=== PATIENT | male | born 2000 | race African-American/Black ===

== ENCOUNTER 2020-01-29 15:17 | Emergency (ER) | payer OTHER, MEDICAID ==
[~2020-01-29] VITALS: Ht 175.3 cm; Wt 66.0 kg
[2020-01-29 15:20] VITALS: BP 138/90
[2020-01-29] MEDS ORDERED: IBUPROFEN 600MG TABLET PO ONE (15:45)
== END 2020-01-29 16:34 | disposition left against medical advice (07) ==
LOC: ER 15:17
DX: R68.89 Other general symptoms and signs (principal); V49.49XA Driver injured in collision with other motor vehicles in traffic accident, initial encounter; Y93.89 Activity, other specified; Y92.89 Other specified places as the place of occurrence of the external cause; Y99.8 Other external cause status
CPT/HCPCS: 71046; 99283

== ENCOUNTER 2020-05-29 16:16 | Inpatient (IN) | payer OTHER, MEDICAID ==
[2020-05-29] VITALS (8 sets, daily range): BP systolic 76–100; BP diastolic 46–72
[~2020-05-29] VITALS: Ht 177.8 cm; Wt 57.6 kg
[2020-05-29] MEDS ORDERED: SODIUM CHLORIDE 0.9% 1,000 ML IV ONE (16:35)
[2020-05-29] MEDS ORDERED: NALOXONE HCL 1 MG/ML 2ML VIAL IV ONE (16:45)
[2020-05-29] MEDS ORDERED: ONDANSETRON HCL 4MG/2ML INJ ONE (16:55)
[2020-05-29 16:57] LABS: BASOPHILS % 0.4 % (0.0-2.0); EOSINOPHILS % 0.2 % (0.0-5.0); HEMATOCRIT. 36.9 % (42.0-52.0); HEMOGLOBIN. 11.4 g/dL (14.0-18.0); LYMPHOCYTES % 10.7 % (20.0-50.0); MEAN CORPUSCULAR HEMOGLOBIN 27.1 pg (28.0-32.0); MEAN CORPUSCULAR VOLUME 88.1 fL (80.0-94.0); MEAN PLATELET VOLUME 10.2 fl (7.4-10.4); MONOCYTES % 2.7 % (2.0-8.0); PLATELET 202 x1000/uL (130-400); RED BLOOD CELL COUNT 4.19 mill/uL (4.7-6.1); RED CELL DISTRIBUTION WIDTH 16.7 % (11.6-14.6)
[2020-05-29 17:00] LABS: CHLORIDE 108 mEq/L (98-107)
[2020-05-29] MEDS ORDERED: ONDANSETRON HCL 4MG/2ML INJ IV ONE (17:00)
[2020-05-29 17:02] LABS: CLARITY URINE CLOUDY (CLEAR); COLOR URINE YELLOW (YELLOW); KETONES URINE NEGATIVE (NEGATIVE); LEUKOCYTE ESTERASE URINE NEGATIVE (NEGATIVE); NITRITE URINE NEGATIVE (NEGATIVE); OCCULT BLOOD URINE 2+ (NEGATIVE); PH URINE 5.5 (4.5-8.0); PROTEIN URINE 2+ (NEGATIVE); SPECIFIC GRAVITY URINE 1.018 (1.005-1.030)
[2020-05-29 17:03] LABS: PROTHROMBIN TIME 10.8 sec (9.6-11.0)
[2020-05-29 17:05] LABS: ETHANOL BLOOD < 10 mg/dL
[2020-05-29 17:09] LABS: BG BASE EXCESS -11.5 mmol/L (-2.0-2.0); BG CARBOXYHEMOGLOBIN 0.6 % (0.5-1.5); BG DEOXYHEMOGLOBIN 3.1 % (0.0-5.0); BG FRACTION INSPIRED OXYGEN 28; BG HCO3 ACT 16.7 mmol/L (22.0-26.0); BG METHEMOGLOBIN 0.2 % (0.0-1.5); BG OXYGEN SATURATION 96.9 % (92.0-98.5); BG OXYHEMOGLOBIN 96.1 % (94.0-97.0); BG PCO2 46.6 mmHg (35.0-45.0); BG PH 7.171 (7.350-7.450); BG PO2 101.5 mmHg (75.0-100.0); BG SAMPLE SITE RIGHT RADIAL; BG TOTAL HEMOGLOBIN 11.6 g/dL (12.0-18.0); BG VENT MODE NASAL CANNULA
[2020-05-29 17:10] LABS: CREATINE KINASE 480 IU/L (39-308)
[2020-05-29 17:14] LABS: *AMPHETAMINES SCREEN URINE NEGATIVE (NEGATIVE); *BARBITURATES SCREEN URINE NEGATIVE (NEGATIVE)
[2020-05-29 17:15] LABS: *BENZODIAZEPINES SCREEN URINE NEGATIVE (NEGATIVE); *COCAINE SCREEN URINE NEGATIVE (NEGATIVE); CANNABINOID URINE SCREEN PRESUMTIVE POSITIVE (NEGATIVE); METHADONE URINE SCREEN NEGATIVE (NEGATIVE); OPIATES URINE SCREEN NEGATIVE (NEGATIVE); PHENCYCLIDINE URINE SCREEN NEGATIVE (NEGATIVE)
[2020-05-29] MEDS ORDERED: ASPIRIN 325MG TABLET PO ONE (18:00)
[2020-05-29] MEDS ORDERED: DEXT 5% IV PRN (18:00)
[2020-05-29] MEDS ORDERED: NALOXONE IV PRN (18:00)
[2020-05-29] MEDS ORDERED: ASPIRIN 300MG SUPP PR ONE (18:00)
[2020-05-29] MEDS ORDERED: WATER IV PRN (18:00)
[2020-05-29] MEDS ORDERED: AZITHROMYCIN 500 MG in DEXT 5% WATER 250 ML IV STA (18:12)
[2020-05-29] MEDS ORDERED: CEFTRIAXONE 1 G PREMIX 50 ML IV ONE (18:15)
[2020-05-29] MEDS ORDERED: DIPHENHYDRAMINE 50MG/ML VIAL IV PRN (20:00)
[2020-05-29] MEDS ORDERED: CLONIDINE 0.1MG TABLET PO PRN (20:00)
[2020-05-29] MEDS ORDERED: ACETAMINOPHEN 325MG TABLET PO PRN ×2 (20:00)
[2020-05-29] MEDS ORDERED: ONDANSETRON HCL 4MG/2ML INJ IV PRN (20:00)
[2020-05-29] MEDS ORDERED: MAGNESIUM/ALUMINUM HYDROXIDE/SIMETHICONE 30ML UDC PO PRN (20:00)
[2020-05-29] MEDS ORDERED: DEXTROSE 50% WATER 50ML SYRINGE IV PRN (20:00)
[2020-05-29] MEDS ORDERED: INSULIN LISPRO 100 UNITS/ML SUBCUT SCH (21:00)
[2020-05-29] MEDS ORDERED: BLOOD SUGAR DIAGNOSTIC STRIP TEST SCH (21:00)
[2020-05-29] MEDS: ENOXAPARIN 40MG/0.4ML SYR SUBCUT SCH (22:40)
[2020-05-29] MEDS: SODIUM CHLORIDE 0.9% 1,000 ML IV SCH (22:41)
[2020-05-30] VITALS (67 sets, daily range): BP systolic 80–124; BP diastolic 41–92
[2020-05-30] MEDS ORDERED: LEVETIRACETAM 500 MG in SODIUM CHLORIDE 0.9% 100 ML IV SCH ×2
[2020-05-30] MEDS: LEVETIRACETAM 500MG PREMIX 100 ML IV SCH ×3 (00:43→22:17)
[2020-05-30 05:09] LABS: HEMOGLOBIN. 10.7 g/dL (14.0-18.0); MEAN CORPUSCULAR HEMOGLOBIN 26.5 pg (28.0-32.0); MEAN CORPUSCULAR VOLUME 86.9 fL (80.0-94.0); MEAN PLATELET VOLUME 10.7 fl (7.4-10.4); PLATELET 190 x1000/uL (130-400); RED BLOOD CELL COUNT 4.03 mill/uL (4.7-6.1); RED CELL DISTRIBUTION WIDTH 16.9 % (11.6-14.6)
[2020-05-30 05:12] LABS: CHLORIDE 103 mEq/L (98-107)
[2020-05-30 05:20] LABS: PHOSPHORUS 3.5 mg/dL (2.5-4.9)
[2020-05-30] MEDS ORDERED: SODIUM POLYSTYRENE SULFONATE 15 G/60 ML BOT PO NR (07:00)
[2020-05-30 08:09] LABS: PLATELET ESTIMATE NORMAL
[2020-05-30] MEDS: SODIUM CHLORIDE 0.9% 1,000 ML IV SCH ×3 (09:37→23:06)
[2020-05-30] MEDS ORDERED: KEPP500 PO (10:38)
[2020-05-30 12:58] LABS: CHLORIDE 102 mEq/L (98-107)
[2020-05-30] MEDS ORDERED: MAGNESIUM 2 G PREMIX 50 ML IV NR (13:00)
[2020-05-30] MEDS: CEFTRIAXONE 1,000 MG in DEXTROSE 5% WATER 50 ML IV SCH (18:29)
[2020-05-30] MEDS: ENOXAPARIN 40MG/0.4ML SYR SUBCUT SCH (22:18)
[2020-05-31] VITALS (7 sets, daily range): BP systolic 97–116; BP diastolic 54–80
[2020-05-31 06:27] LABS: BASOPHILS % 0.5 % (0.0-2.0); EOSINOPHILS % 0.3 % (0.0-5.0); HEMATOCRIT. 27.3 % (42.0-52.0); HEMOGLOBIN. 8.8 g/dL (14.0-18.0); LYMPHOCYTES % 22.2 % (20.0-50.0); MEAN CORPUSCULAR VOLUME 83.9 fL (80.0-94.0); PLATELET 154 x1000/uL (130-400); RED BLOOD CELL COUNT 3.25 mill/uL (4.7-6.1); RED CELL DISTRIBUTION WIDTH 17.1 % (11.6-14.6)
[2020-05-31 06:51] LABS: CHLORIDE 107 mEq/L (98-107)
[2020-05-31 06:59] LABS: PHOSPHORUS 2.3 mg/dL (2.5-4.9)
[2020-05-31] MEDS: LEVETIRACETAM 500MG PREMIX 100 ML IV SCH (09:34)
[2020-05-31] MEDS: SODIUM CHLORIDE 0.9% 1,000 ML IV SCH (11:43)
[2020-05-31] MEDS ORDERED: POTASSIUM PHOS,M-BASIC-D-BASIC 15 MMOL in DEXT 5% WATER 245 ML IV SCH (12:00)
[2020-05-31] MEDS: CEFTRIAXONE 1,000 MG in DEXTROSE 5% WATER 50 ML IV SCH (18:41)
[2020-05-31] MEDS ORDERED: LEVETIRACETAM 500MG TABLET PO SCH (21:00)
[2020-05-31] MEDS: ENOXAPARIN 40MG/0.4ML SYR SUBCUT SCH (21:49)
== END 2020-05-31 22:45 | disposition short-term general hospital (02) | DRG 871 ==
LOC: ER 16:16 → MICUSO 17:53 → EDBEDREQ 18:21 → ENRESERV 19:24 → CANRESERV 19:24 → ENRESERV 19:54 → 8WST 05-30 17:55
PROVIDERS: ADMIT Internal Medicine; ATTEND Internal Medicine
DX: A41.9 Sepsis, unspecified organism (principal); I21.4 Non-ST elevation (NSTEMI) myocardial infarction; G93.41 Metabolic encephalopathy; K83.1 Obstruction of bile duct; J96.01 Acute respiratory failure with hypoxia; J69.0 Pneumonitis due to inhalation of food and vomit; E87.2 Acidosis; E87.5 Hyperkalemia; R74.0 Nonspecific elevation of levels of transaminase and lactic acid dehydrogenase [LDH]; F32.9 Major depressive disorder, single episode, unspecified; F41.9 Anxiety disorder, unspecified; G40.909 Epilepsy, unspecified, not intractable, without status epilepticus; F12.90 Cannabis use, unspecified, uncomplicated; T40.605A Adverse effect of unspecified narcotics, initial encounter; D64.9 Anemia, unspecified; D72.810 Lymphocytopenia; E87.8 Other disorders of electrolyte and fluid balance, not elsewhere classified; M43.00 Spondylolysis, site unspecified; Z20.828 Contact with and (suspected) exposure to other viral communicable diseases; Y92.89 Other specified places as the place of occurrence of the external cause
CPT/HCPCS: 36415; 36600; 71045; 74176; 76700; 80048; 80053; 80305; 80307; 80320; 80329; 81003; 82140; 82375; 82550; 82805; 82962; 83036; 83605; 83735; 83880; 84100; 84443; 84484; 85025; 87635; 93005; 93306; 93970; 99291; J0456; J0696; J1650; J1953; J2310; J2405; J3475; J3490; J7030; J7060; G0480

== ENCOUNTER 2022-08-15 15:36 | Emergency (ER) | payer OTHER ==
[~2022-08-15] VITALS: Ht 175.3 cm; Wt 54.0 kg
[~2022-08-15 15:36] MED LIST: KEPP500 PO
[2022-08-15 15:49] VITALS: BP 111/66
== END 2022-08-15 16:50 | disposition left against medical advice (07) ==
LOC: ER 15:36
DX: R56.9 Unspecified convulsions (principal); Z53.21 Procedure and treatment not carried out due to patient leaving prior to being seen by health care provider
CPT/HCPCS: 82962

== ENCOUNTER 2024-03-18 07:48 | Inpatient (IN) | payer MEDICAID ==
[2024-03-18] VITALS (49 sets, daily range): BP systolic 73–120; BP diastolic 48–77; PULSE 92–132; RESP 0–30; TEMP 98.2–100.2
[~2024-03-18] VITALS: Ht 180.3 cm; Wt 62.1 kg
[2024-03-18] MEDS: NALOXONE HCL 1MG/ML 2ML VIAL ONE (08:00)
[2024-03-18] MEDS: LORAZEPAM 2MG/ML INJ IV ONE (08:11)
[2024-03-18] MEDS: SODIUM CHLORIDE 0.9% 1,000 ML IV ONE ×2 (08:11→09:33)
[2024-03-18] MEDS: LEVETIRACETAM 1000MG PREMIX 100 ML IV ONE (08:11)
[2024-03-18] MEDS: ONDANSETRON HCL 4MG/2ML INJ IV STA (08:11)
[2024-03-18 08:56] LABS: CHLORIDE 103 mEq/L (98-107); SODIUM 140 mEq/L (136-145)
[2024-03-18 08:57] LABS: CALCIUM 8.3 mg/dL (8.7-10.4); CARBON DIOXIDE 19 mEq/L (21-32)
[2024-03-18] MEDS ORDERED: ETOMIDATE 2MG/ML 10ML VIAL IV ONE (09:00)
[2024-03-18] MEDS ORDERED: CEFEPIME 2GM IN DEXT 5% 100ML IV ONE (09:00)
[2024-03-18] MEDS ORDERED: NOREPINEPHRINE 8 MG in DEXT 5% WATER 242 ML IV SCH (09:00)
[2024-03-18 09:02] LABS: GLUCOSE 99 mg/dL (70-105); HEMATOCRIT. 39.3 % (42.0-52.0); HEMOGLOBIN. 11.8 g/dL (14.0-18.0); MEAN CORPUSCULAR HEMOGLOBIN 29.4 pg (28.0-32.0); MEAN PLATELET VOLUME 9.2 fl (7.4-10.4); PLATELET 342 x1000/uL (130-400); RED CELL DISTRIBUTION WIDTH 19.4 % (11.6-14.6); UREA NITROGEN BLOOD 18 mg/dL (9-23); WHITE BLOOD COUNT 17.2 x1000/uL (4.5-11.0)
[2024-03-18 09:03] LABS: DIFFERENTIAL COMMENT 1
[2024-03-18 09:04] LABS: ACETAMINOPHEN < 2 ug/mL (10-30)
[2024-03-18] MEDS ORDERED: MIDAZOLAM 100MG/100ML PMX 80 ML IV SCH (09:15)
[2024-03-18] MEDS ORDERED: MIDAZOLAM 100MG/100ML PMX 100 ML IV SCH (09:15)
[2024-03-18 09:18] LABS: ETHANOL BLOOD < 10 mg/dL (<10); POTASSIUM 6.2 mEq/L (3.5-5.1)
[2024-03-18 09:22] LABS: ALANINE AMINOTRANSFERASE 442 IU/L (10-49); ALBUMIN 4.4 g/dL (3.2-4.8); ASPARTATE AMINOTRANSFERASE 396 IU/L (<34); BILIRUBIN DIRECT 0.2 mg/dL (<=3.0); BILIRUBIN TOTAL 0.4 mg/dL (0.1-1.0); PROTEIN TOTAL 7.3 g/dL (6.0-8.3)
[2024-03-18] MEDS ORDERED: CALCIUM GLUCONATE 1GM PREMIX 50 ML IV ONE (09:30)
[2024-03-18 09:32] LABS: CREATINE KINASE 2127 IU/L (46-171)
[2024-03-18] MEDS: SUCCINYLCHOLINE CHLORIDE 200MG/10ML IV ONE (09:33)
[2024-03-18] MEDS: ETOMIDATE 2MG/ML 10ML VIAL IV ONE (09:33)
[2024-03-18] MEDS: FENTANYL 2500MCG/250ML PMX 250 ML IV ONE (09:41)
[2024-03-18 09:55] LABS: BG BASE EXCESS -14.1 mmol/L (-2.0-2.0); BG CARBOXYHEMOGLOBIN 0.3 % (0.5-1.5); BG DEOXYHEMOGLOBIN 7.6 % (0.0-5.0); BG FRACTION INSPIRED OXYGEN 100; BG HCO3 ACT 15.8 mmol/L (22.0-26.0); BG METHEMOGLOBIN 0.3 % (0.0-1.5); BG OXYGEN SATURATION 92.4 % (92.0-98.5); BG OXYHEMOGLOBIN 91.8 % (94.0-97.0); BG PH 7.083 (7.350-7.450); BG PO2 79.3 mmHg (75.0-100.0); BG SAMPLE SITE RIGHT BRACHIAL; BG TOTAL HEMOGLOBIN 12.2 g/dL (12.0-18.0); BG VENT MODE VENT - AC
[2024-03-18] MEDS: MIDAZOLAM HCL 100 MG in DEXT 5% WATER 80 ML IV ONE (10:00)
[2024-03-18] MEDS: CALCIUM GLUCONATE 1GM PREMIX 50 ML IV ONE (10:13)
[2024-03-18 10:26] LABS: PLATELET ESTIMATE NORMAL
[2024-03-18] MEDS: INSULIN REGULAR (HUMULIN R) 1000UNITS/10ML VIAL IV ONE (10:31)
[2024-03-18] MEDS: DEXTROSE 50% WATER 50ML SYRINGE IV ONE (10:31)
[2024-03-18] MEDS: CEFEPIME 2GM/100ML 100 ML IV NR (10:36)
[2024-03-18] MEDS: VANCOMYCIN 1000MG/250ML 250 ML IV STA (10:50)
[2024-03-18] MEDS: ALBUTEROL (0.083%) 2.5MG/3ML NEB HHN ONE (10:59)
[2024-03-18] MEDS ORDERED: LIDOCAINE HCL 1% 10 MG/ML 10ML VIAL ONE (11:44)
[2024-03-18] MEDS ORDERED: CLONIDINE 0.1MG TABLET PO PRN (11:45)
[2024-03-18] MEDS ORDERED: DIPHENHYDRAMINE 50MG/ML VIAL IV PRN (11:45)
[2024-03-18] MEDS: SODIUM BICARBONATE 8.4% 50MEQ/50ML SYR IV NR (11:56)
[2024-03-18] MEDS: SODIUM ZIRCONIUM CYCLOSILICATE 10GM/PACKET PO NR ×2 (12:08→17:05)
[2024-03-18] MEDS ORDERED: SODIUM BICARBONATE 75 MEQ in SODIUM CHLORIDE 0.45% 1,000 ML IV SCH (14:30)
[2024-03-18] MEDS ORDERED: SODIUM BICARBONATE 75 MEQ in SODIUM CHLORIDE 0.45% 925 ML IV SCH (14:30)
[2024-03-18] MEDS: IPRATROPIUM/ALBUTEROL 0.5-3(2.5)MG/3ML NEB HHN PRN (14:53)
[2024-03-18] MEDS: LORAZEPAM 2MG/ML INJ IV NR (14:54)
[2024-03-18 15:06] LABS: BG BASE EXCESS -6.3 mmol/L (-2.0-2.0); BG CARBOXYHEMOGLOBIN 0.3 % (0.5-1.5); BG DEOXYHEMOGLOBIN 19.6 % (0.0-5.0); BG FRACTION INSPIRED OXYGEN 100; BG HCO3 ACT 23.2 mmol/L (22.0-26.0); BG METHEMOGLOBIN 0.2 % (0.0-1.5); BG OXYGEN SATURATION 80.3 % (92.0-98.5); BG OXYHEMOGLOBIN 79.9 % (94.0-97.0); BG PCO2 65.6 mmHg (35.0-45.0); BG PH 7.166 (7.350-7.450); BG PO2 52.3 mmHg (75.0-100.0); BG SAMPLE SITE RIGHT RADIAL; BG TOTAL HEMOGLOBIN 12.7 g/dL (12.0-18.0); BG TOTAL RESPIRATORY RATE 27 b/min; BG VENT MODE VENT - AC
[2024-03-18] MEDS: NOREPINEPHRINE 8MG/250ML PMX 250ML IV PRN (15:44)
[2024-03-18] MEDS: FENTANYL 2500MCG/250ML PMX 250 ML IV PRN (15:46)
[2024-03-18] MEDS: MIDAZOLAM 100MG/100ML PMX 100 ML IV PRN (15:47)
[2024-03-18] MEDS: VANCOMYCIN 500MG PREMIX 100 ML IV NR (16:31)
[2024-03-18] MEDS: DOXYCYCLINE 100MG/100ML 100 ML IV SCH (17:06)
[2024-03-18] MEDS ORDERED: CEFEPIME 1GM/50ML 50 ML IV SCH (18:00)
[2024-03-18 18:15] LABS: BG BASE EXCESS -4.4 mmol/L (-2.0-2.0); BG CARBOXYHEMOGLOBIN 0.3 % (0.5-1.5); BG DEOXYHEMOGLOBIN 6.8 % (0.0-5.0); BG FRACTION INSPIRED OXYGEN 100; BG HCO3 ACT 26.5 mmol/L (22.0-26.0); BG METHEMOGLOBIN 0.1 % (0.0-1.5); BG OXYGEN SATURATION 93.2 % (92.0-98.5); BG OXYHEMOGLOBIN 92.8 % (94.0-97.0); BG PCO2 80.9 mmHg (35.0-45.0); BG PH 7.133 (7.350-7.450); BG PO2 81.2 mmHg (75.0-100.0); BG SAMPLE SITE RIGHT RADIAL; BG TOTAL RESPIRATORY RATE 26 b/min; BG VENT MODE VENT - AC
[2024-03-18] MEDS ORDERED: PROPOFOL 10MG/ML 100ML 100 ML IV PRN (19:00)
[2024-03-18 19:03] LABS: POTASSIUM 4.2 mEq/L (3.5-5.1)
[2024-03-18 19:04] LABS: CALCIUM 7.4 mg/dL (8.7-10.4)
[2024-03-18 19:09] LABS: CREATININE 1.7 mg/dL (0.6-1.3)
[2024-03-18] MEDS: IPRATROPIUM/ALBUTEROL 0.5-3(2.5)MG/3ML NEB HHN SCH (20:00)
[2024-03-18] MEDS ORDERED: CEFEPIME 2GM/100ML 100 ML IV SCH (21:00)
[2024-03-18] MEDS: ACETAMINOPHEN 325MG TABLET PO PRN (21:51)
[2024-03-18] MEDS: METRONIDAZOLE 500MG TABLET GT SCH (21:51)
[2024-03-18] MEDS: CEFEPIME 2GM/100ML 100 ML IV SCH (21:51)
[2024-03-18] MEDS: LACTATED RINGERS 1,000 ML IV SCH (21:51)
[2024-03-18] MEDS: NOREPINEPHRINE 32 MG in DEXT 5% WATER 218 ML IV PRN (21:53)
[2024-03-18] MEDS: MIDAZOLAM HCL 100 MG in SODIUM CHLORIDE 0.9% 80 ML IV PRN (21:54)
[2024-03-18 22:43] LABS: BG BASE EXCESS -8.7 mmol/L (-2.0-2.0); BG CARBOXYHEMOGLOBIN 0.3 % (0.5-1.5); BG DEOXYHEMOGLOBIN 2.3 % (0.0-5.0); BG FRACTION INSPIRED OXYGEN 100; BG HCO3 ACT 21.1 mmol/L (22.0-26.0); BG METHEMOGLOBIN 0.2 % (0.0-1.5); BG OXYGEN SATURATION 97.7 % (92.0-98.5); BG OXYHEMOGLOBIN 97.2 % (94.0-97.0); BG PCO2 64.9 mmHg (35.0-45.0); BG PO2 113.7 mmHg (75.0-100.0); BG SAMPLE SITE LEFT RADIAL; BG TOTAL HEMOGLOBIN 12.5 g/dL (12.0-18.0); BG VENT MODE VENT - AC
[2024-03-19] VITALS (97 sets, daily range): BP systolic 82–127; BP diastolic 30–88; PULSE 109–133; RESP 22–36; TEMP 98.3–100.9
[2024-03-19] MEDS: PHENYLEPHRINE 50MG/250ML PMX 250 ML IV PRN (00:12)
[2024-03-19 05:34] LABS: HEMATOCRIT. 38.6 % (42.0-52.0); HEMOGLOBIN. 11.6 g/dL (14.0-18.0); MEAN CORPUSCULAR HEMOGLOBIN 29.2 pg (28.0-32.0); MEAN CORPUSCULAR HGB CONC 30.1 g/dL (31.0-37.0); MEAN CORPUSCULAR VOLUME 96.8 fL (80.0-94.0); MEAN PLATELET VOLUME 9.7 fl (7.4-10.4); PLATELET 167 x1000/uL (130-400); RED BLOOD CELL COUNT 3.98 mill/uL (4.7-6.1); RED CELL DISTRIBUTION WIDTH 20.1 % (11.6-14.6); WHITE BLOOD COUNT 13.6 x1000/uL (4.5-11.0)
[2024-03-19 05:55] LABS: LACTIC ACID 4.6 mmol/L (0.4-2.0)
[2024-03-19 05:55] LABS: CREATINE KINASE 8006 IU/L (46-171)
[2024-03-19 06:15] LABS: DIFFERENTIAL COMMENT 1
[2024-03-19 06:59] LABS: CARBON DIOXIDE 21 mEq/L (21-32); CHLORIDE 106 mEq/L (98-107); POTASSIUM 4.6 mEq/L (3.5-5.1); SODIUM 140 mEq/L (136-145)
[2024-03-19 07:00] LABS: CALCIUM 7.7 mg/dL (8.7-10.4)
[2024-03-19 07:04] LABS: CREATININE 1.8 mg/dL (0.6-1.3); GLUCOSE 99 mg/dL (70-105)
[2024-03-19 07:05] LABS: TRIGLYCERIDE 244 mg/dL (0-150); UREA NITROGEN BLOOD 32 mg/dL (9-23)
[2024-03-19 07:06] LABS: ALANINE AMINOTRANSFERASE 702 IU/L (10-49); ALBUMIN 3.3 g/dL (3.2-4.8); ASPARTATE AMINOTRANSFERASE 724 IU/L (<34)
[2024-03-19 07:07] LABS: BILIRUBIN DIRECT 0.3 mg/dL (<=3.0); BILIRUBIN TOTAL 0.5 mg/dL (0.1-1.0); PHOSPHORUS 4.6 mg/dL (2.5-4.9); PROTEIN TOTAL 5.6 g/dL (6.0-8.3)
[2024-03-19] MEDS: FENTANYL 2500MCG/250ML PMX 250 ML IV PRN (08:48)
[2024-03-19 09:03] LABS: BG BASE EXCESS -4.5 mmol/L (-2.0-2.0); BG CARBOXYHEMOGLOBIN 0.3 % (0.5-1.5); BG DEOXYHEMOGLOBIN 0.2 % (0.0-5.0); BG FRACTION INSPIRED OXYGEN 100; BG HCO3 ACT 25.5 mmol/L (22.0-26.0); BG METHEMOGLOBIN 0.2 % (0.0-1.5); BG OXYGEN SATURATION 99.8 % (92.0-98.5); BG OXYHEMOGLOBIN 99.3 % (94.0-97.0); BG PCO2 72.8 mmHg (35.0-45.0); BG PH 7.163 (7.350-7.450); BG PO2 282.9 mmHg (75.0-100.0); BG SAMPLE SITE RIGHT BRACHIAL; BG TOTAL HEMOGLOBIN 12.9 g/dL (12.0-18.0); BG VENT MODE VENT - AC
[2024-03-19] MEDS: ACETYLCYSTEINE 200MG/ML 20% VIAL 4ML INH SCH (09:51)
[2024-03-19] MEDS: VANCOMYCIN 1GM/200ML PMX (BAXTER) IV SCH (11:46)
[2024-03-19] MEDS: MAGNESIUM 2 G PREMIX 50 ML IV NR (13:36)
[2024-03-19 13:42] LABS: BG BASE EXCESS -21.4 mmol/L (-2.0-2.0); BG CARBOXYHEMOGLOBIN 0.3 % (0.5-1.5); BG DEOXYHEMOGLOBIN 0.3 % (0.0-5.0); BG FRACTION INSPIRED OXYGEN 100; BG HCO3 ACT 12.7 mmol/L (22.0-26.0); BG OXYGEN SATURATION 99.7 % (92.0-98.5); BG OXYHEMOGLOBIN 99.4 % (94.0-97.0); BG PCO2 75.2 mmHg (35.0-45.0); BG PH 6.847 (7.350-7.450); BG PO2 353.5 mmHg (75.0-100.0); BG SAMPLE SITE RIGHT BRACHIAL; BG TOTAL HEMOGLOBIN 11.9 g/dL (12.0-18.0); BG VENT MODE VENT - AC
[2024-03-19] MEDS: SODIUM BICARBONATE 8.4% 50MEQ/50ML SYR IV NR ×2 (14:03→14:06)
[2024-03-19] MEDS: METHYLPREDNISOLONE SOD SUCC 125MG/2ML (ACT-O-VIAL) IV NR (14:14)
[2024-03-19] MEDS ORDERED: SODIUM BICARBONATE 150 MEQ in SODIUM CHLORIDE 0.45% 850 ML IV SCH (14:15)
[2024-03-19 14:37] LABS: NUCLEATED RED BLOOD CELLS 1 /100 WBC
[2024-03-19 14:38] LABS: ANISOCYTOSIS 1+; PLATELET ESTIMATE NORMAL
[2024-03-19] MEDS ORDERED: NACL IV SCH (15:00)
[2024-03-19] MEDS ORDERED: DEXT IV SCH (15:00)
[2024-03-19] MEDS ORDERED: SODIUM BICARBONATE IV SCH (15:00)
[2024-03-19 15:07] LABS: CHLORIDE 107 mEq/L (98-107); POTASSIUM 4.4 mEq/L (3.5-5.1); SODIUM 143 mEq/L (136-145)
[2024-03-19 15:08] LABS: CALCIUM 7.2 mg/dL (8.7-10.4); CARBON DIOXIDE 31 mEq/L (21-32)
[2024-03-19 15:13] LABS: CREATININE 1.2 mg/dL (0.6-1.3); GLUCOSE 113 mg/dL (70-105); UREA NITROGEN BLOOD 33 mg/dL (9-23)
[2024-03-19 15:15] LABS: ALANINE AMINOTRANSFERASE 637 IU/L (10-49); ALBUMIN 2.9 g/dL (3.2-4.8); ASPARTATE AMINOTRANSFERASE 584 IU/L (<34); BILIRUBIN TOTAL 0.6 mg/dL (0.1-1.0); PROTEIN TOTAL 4.8 g/dL (6.0-8.3)
[2024-03-19 17:24] LABS: BG BASE EXCESS 4.6 mmol/L (-2.0-2.0); BG CARBOXYHEMOGLOBIN 0.4 % (0.5-1.5); BG DEOXYHEMOGLOBIN 0.1 % (0.0-5.0); BG FRACTION INSPIRED OXYGEN 80; BG METHEMOGLOBIN 0.2 % (0.0-1.5); BG OXYGEN SATURATION 99.9 % (92.0-98.5); BG OXYHEMOGLOBIN 99.3 % (94.0-97.0); BG PCO2 26.2 mmHg (35.0-45.0); BG PH 7.597 (7.350-7.450); BG PO2 359.3 mmHg (75.0-100.0); BG SAMPLE SITE RIGHT RADIAL; BG TOTAL HEMOGLOBIN 14.2 g/dL (12.0-18.0); BG VENT MODE VENT - P/C
[2024-03-19] MEDS: PROPOFOL 10MG/ML 100ML 100 ML IV PRN (19:32)
[2024-03-19] MEDS: METHYLPREDNISOLONE SOD SUCC 40MG/ML (ACT-O-VIAL) IV SCH (20:33)
[2024-03-20] VITALS (101 sets, daily range): BP systolic 91–130; BP diastolic 51–85; PULSE 92–112; RESP 16–28; TEMP 98.1–99.1
[2024-03-20 05:56] LABS: CHLORIDE 106 mEq/L (98-107); POTASSIUM 3.7 mEq/L (3.5-5.1); SODIUM 144 mEq/L (136-145)
[2024-03-20 05:57] LABS: CARBON DIOXIDE 31 mEq/L (21-32); HEMATOCRIT. 32.4 % (42.0-52.0); HEMOGLOBIN. 10.4 g/dL (14.0-18.0); MEAN CORPUSCULAR VOLUME 90.6 fL (80.0-94.0); MEAN PLATELET VOLUME 10.3 fl (7.4-10.4); PLATELET 160 x1000/uL (130-400); RED BLOOD CELL COUNT 3.57 mill/uL (4.7-6.1); RED CELL DISTRIBUTION WIDTH 19.2 % (11.6-14.6); WHITE BLOOD COUNT 11.3 x1000/uL (4.5-11.0)
[2024-03-20 05:58] LABS: CALCIUM 8.5 mg/dL (8.7-10.4)
[2024-03-20 06:02] LABS: CREATININE 1.2 mg/dL (0.6-1.3)
[2024-03-20 06:03] LABS: GLUCOSE 116 mg/dL (70-105); TRIGLYCERIDE 185 mg/dL (0-150); UREA NITROGEN BLOOD 27 mg/dL (9-23)
[2024-03-20 06:04] LABS: ALANINE AMINOTRANSFERASE 764 IU/L (10-49); ALBUMIN 3.3 g/dL (3.2-4.8); ASPARTATE AMINOTRANSFERASE 668 IU/L (<34); PROTEIN TOTAL 5.5 g/dL (6.0-8.3)
[2024-03-20 06:05] LABS: BILIRUBIN DIRECT 0.5 mg/dL (<=3.0); BILIRUBIN TOTAL 0.9 mg/dL (0.1-1.0)
[2024-03-20 06:14] LABS: DIFFERENTIAL COMMENT 1
[2024-03-20 06:15] LABS: CREATINE KINASE 6661 IU/L (46-171)
[2024-03-20 07:50] LABS: BG BASE EXCESS 4.2 mmol/L (-2.0-2.0); BG CARBOXYHEMOGLOBIN 0.3 % (0.5-1.5); BG FRACTION INSPIRED OXYGEN 40; BG HCO3 ACT 25.5 mmol/L (22.0-26.0); BG OXYHEMOGLOBIN 98.7 % (94.0-97.0); BG PCO2 27.5 mmHg (35.0-45.0); BG PH 7.585 (7.350-7.450); BG PO2 135.1 mmHg (75.0-100.0); BG SAMPLE SITE RIGHT RADIAL; BG TOTAL HEMOGLOBIN 10.6 g/dL (12.0-18.0); BG VENT MODE VENT - P/C
[2024-03-20] MEDS: PANTOPRAZOLE SODIUM 40 MG/VIAL IV SCH (08:34)
[2024-03-20] MEDS ORDERED: PROPOFOL 10MG/ML 100ML 100 ML IV PRN (11:15)
[2024-03-20 11:47] LABS: ANISOCYTOSIS 2+; PLATELET ESTIMATE NORMAL
[2024-03-20] MEDS: POTASSIUM PHOSPHATE 30 MMOL in DEXT 5% WATER 490 ML IV NR (11:59)
[2024-03-20] MEDS: SODIUM BICARBONATE 50 MEQ in DEXTROSE 5% WATER 950 ML IV SCH (12:00)
[2024-03-20 12:04] LABS: BG BASE EXCESS 5.6 mmol/L (-2.0-2.0); BG CARBOXYHEMOGLOBIN 0.3 % (0.5-1.5); BG DEOXYHEMOGLOBIN 1.8 % (0.0-5.0); BG FRACTION INSPIRED OXYGEN 40; BG HCO3 ACT 32.3 mmol/L (22.0-26.0); BG OXYGEN SATURATION 98.2 % (92.0-98.5); BG OXYHEMOGLOBIN 97.9 % (94.0-97.0); BG PCO2 57.6 mmHg (35.0-45.0); BG PH 7.366 (7.350-7.450); BG SAMPLE SITE RIGHT RADIAL; BG TOTAL HEMOGLOBIN 11.4 g/dL (12.0-18.0); BG VENT MODE VENT - AC
[2024-03-20] MEDS: VANCOMYCIN 750MG PREMIX 150 ML IV SCH (14:12)
[2024-03-20] MEDS: CEFEPIME 2GM/100ML 100 ML IV SCH (15:43)
[2024-03-21] VITALS (86 sets, daily range): BP systolic 91–127; BP diastolic 52–86; PULSE 86–110; RESP 19–23; TEMP 98.1–99.5
[2024-03-21 05:10] LABS: CARBON DIOXIDE 32 mEq/L (21-32); CHLORIDE 108 mEq/L (98-107); POTASSIUM 3.7 mEq/L (3.5-5.1); SODIUM 144 mEq/L (136-145)
[2024-03-21 05:11] LABS: CALCIUM 8.5 mg/dL (8.7-10.4)
[2024-03-21 05:15] LABS: CREATININE 0.8 mg/dL (0.6-1.3)
[2024-03-21 05:16] LABS: GLUCOSE 164 mg/dL (70-105); TRIGLYCERIDE 77 mg/dL (0-150); UREA NITROGEN BLOOD 19 mg/dL (9-23)
[2024-03-21 05:17] LABS: VANCOMYCIN TROUGH 16.2 ug/mL (5.0-10.0)
[2024-03-21 05:18] LABS: PHOSPHORUS 1.9 mg/dL (2.5-4.9)
[2024-03-21 05:28] LABS: CREATINE KINASE 3582 IU/L (46-171)
[2024-03-21 05:33] LABS: HEMATOCRIT. 29.1 % (42.0-52.0); HEMOGLOBIN. 9.3 g/dL (14.0-18.0); MEAN CORPUSCULAR HEMOGLOBIN 28.9 pg (28.0-32.0); MEAN CORPUSCULAR HGB CONC 31.8 g/dL (31.0-37.0); MEAN CORPUSCULAR VOLUME 90.7 fL (80.0-94.0); MEAN PLATELET VOLUME 10.5 fl (7.4-10.4); PLATELET 161 x1000/uL (130-400); RED CELL DISTRIBUTION WIDTH 19.2 % (11.6-14.6); WHITE BLOOD COUNT 14.1 x1000/uL (4.5-11.0)
[2024-03-21 06:57] LABS: DIFFERENTIAL COMMENT 1
[2024-03-21 08:44] LABS: BG BASE EXCESS 6.9 mmol/L (-2.0-2.0); BG CARBOXYHEMOGLOBIN 0.3 % (0.5-1.5); BG DEOXYHEMOGLOBIN 0.8 % (0.0-5.0); BG FRACTION INSPIRED OXYGEN 40; BG HCO3 ACT 31.6 mmol/L (22.0-26.0); BG METHEMOGLOBIN 0.1 % (0.0-1.5); BG OXYGEN SATURATION 99.2 % (92.0-98.5); BG OXYHEMOGLOBIN 98.8 % (94.0-97.0); BG PCO2 45.4 mmHg (35.0-45.0); BG SAMPLE SITE LEFT RADIAL; BG TOTAL HEMOGLOBIN 10.1 g/dL (12.0-18.0); BG TOTAL RESPIRATORY RATE 22 b/min; BG VENT MODE VENT - AC
[2024-03-21 11:22] LABS: ANISOCYTOSIS 1+; PLATELET ESTIMATE NORMAL
[2024-03-21] MEDS: POTASSIUM PHOSPHATE 15 MMOL in DEXT 5% WATER 245 ML IV NR (15:09)
[2024-03-21] MEDS: DEXT 5%/0.45% NACL 1000ML 1,000 ML IV SCH (16:00)
[2024-03-22] VITALS (62 sets, daily range): BP systolic 104–137; BP diastolic 66–110; PULSE 79–121; RESP 19–30; TEMP 97.9–98.5
[2024-03-22 05:32] LABS: HEMATOCRIT. 29.7 % (42.0-52.0); HEMOGLOBIN. 9.6 g/dL (14.0-18.0); MEAN CORPUSCULAR HEMOGLOBIN 28.9 pg (28.0-32.0); MEAN CORPUSCULAR HGB CONC 32.2 g/dL (31.0-37.0); MEAN CORPUSCULAR VOLUME 89.9 fL (80.0-94.0); MEAN PLATELET VOLUME 9.8 fl (7.4-10.4); PLATELET 165 x1000/uL (130-400); RED CELL DISTRIBUTION WIDTH 19.5 % (11.6-14.6); WHITE BLOOD COUNT 17.3 x1000/uL (4.5-11.0)
[2024-03-22 05:37] LABS: CHLORIDE 105 mEq/L (98-107); POTASSIUM 4.2 mEq/L (3.5-5.1); SODIUM 142 mEq/L (136-145)
[2024-03-22 05:39] LABS: CALCIUM 8.3 mg/dL (8.7-10.4); CARBON DIOXIDE 33 mEq/L (21-32)
[2024-03-22 05:42] LABS: DIFFERENTIAL COMMENT 1
[2024-03-22 05:44] LABS: CREATININE 0.7 mg/dL (0.6-1.3); GLUCOSE 128 mg/dL (70-105); UREA NITROGEN BLOOD 27 mg/dL (9-23)
[2024-03-22 05:46] LABS: ALANINE AMINOTRANSFERASE 487 IU/L (10-49); ASPARTATE AMINOTRANSFERASE 222 IU/L (<34); BILIRUBIN DIRECT 0.3 mg/dL (<=3.0); PHOSPHORUS 2.6 mg/dL (2.5-4.9)
[2024-03-22 05:47] LABS: BILIRUBIN TOTAL 0.5 mg/dL (0.1-1.0); PROTEIN TOTAL 5.4 g/dL (6.0-8.3)
[2024-03-22 16:23] LABS: ANISOCYTOSIS 1+; PLATELET ESTIMATE NORMAL
[2024-03-22] MEDS: ONDANSETRON HCL 4MG/2ML INJ IV PRN (16:55)
[2024-03-23] VITALS (24 sets, daily range): BP systolic 122–138; BP diastolic 57–100; PULSE 74–118; RESP 20–34; TEMP 98.5–98.7; O2SAT 99
[2024-03-23] MEDS: METHYLPREDNISOLONE SOD SUCC 40MG/ML (ACT-O-VIAL) IV SCH (03:17)
[2024-03-23 05:24] LABS: BASOPHILS % 0.1 % (0.0-2.0); DIFFERENTIAL COMMENT 0; EOSINOPHILS % 0.1 % (0.0-5.0); HEMATOCRIT. 30.4 % (42.0-52.0); HEMOGLOBIN. 9.7 g/dL (14.0-18.0); LYMPHOCYTES % 14.2 % (20.0-50.0); MEAN CORPUSCULAR HEMOGLOBIN 28.6 pg (28.0-32.0); MEAN CORPUSCULAR HGB CONC 31.8 g/dL (31.0-37.0); MEAN CORPUSCULAR VOLUME 90.1 fL (80.0-94.0); MEAN PLATELET VOLUME 9.9 fl (7.4-10.4); MONOCYTES % 9.6 % (2.0-8.0); PLATELET 166 x1000/uL (130-400); RED BLOOD CELL COUNT 3.38 mill/uL (4.7-6.1); RED CELL DISTRIBUTION WIDTH 19.6 % (11.6-14.6); WHITE BLOOD COUNT 13.7 x1000/uL (4.5-11.0)
[2024-03-23 05:42] LABS: CHLORIDE 106 mEq/L (98-107); POTASSIUM 3.8 mEq/L (3.5-5.1); SODIUM 142 mEq/L (136-145)
[2024-03-23 05:43] LABS: CALCIUM 8.1 mg/dL (8.7-10.4); CARBON DIOXIDE 30 mEq/L (21-32)
[2024-03-23 05:48] LABS: CREATININE 0.6 mg/dL (0.6-1.3); GLUCOSE 106 mg/dL (70-105); UREA NITROGEN BLOOD 24 mg/dL (9-23)
[2024-03-23 05:50] LABS: PHOSPHORUS 1.4 mg/dL (2.5-4.9)
[2024-03-23] MEDS: MAGNESIUM 1 G PREMIX 100 ML IV NR (11:17)
[2024-03-23] MEDS: POTASSIUM PHOSPHATE 30 MMOL in DEXT 5% WATER 490 ML IV NR (13:05)
[2024-03-23 14:27] LABS: BG BASE EXCESS 4.9 mmol/L (-2.0-2.0); BG CARBOXYHEMOGLOBIN 0.3 % (0.5-1.5); BG DEOXYHEMOGLOBIN 1.6 % (0.0-5.0); BG FRACTION INSPIRED OXYGEN 35; BG HCO3 ACT 28.4 mmol/L (22.0-26.0); BG METHEMOGLOBIN 0.2 % (0.0-1.5); BG OXYGEN SATURATION 98.4 % (92.0-98.5); BG OXYHEMOGLOBIN 97.9 % (94.0-97.0); BG PCO2 37.9 mmHg (35.0-45.0); BG PH 7.493 (7.350-7.450); BG SAMPLE SITE RIGHT RADIAL; BG VENT MODE VENT - CPAP
== END 2024-03-23 18:48 | disposition short-term general hospital (02) | DRG 812 ==
LOC: ER 07:48 → MICUNO 10:53
PROVIDERS: ADMIT Internal Medicine; ATTEND Internal Medicine
PROC: 5A1955Z Respiratory Ventilation, Greater than 96 Consecutive Hours (ICD-10-PCS; principal; 2024-03-18)
PROC: 0BH17EZ Insertion of Endotracheal Airway into Trachea, Via Natural or Artificial Opening (ICD-10-PCS; 2024-03-18)
PROC: 05HY33Z Insertion of Infusion Device into Upper Vein, Percutaneous Approach (ICD-10-PCS; 2024-03-18)
PROC: B54MZZA Ultrasonography of Right Upper Extremity Veins, Guidance (ICD-10-PCS; 2024-03-18)
DX: T43.221A Poisoning by selective serotonin reuptake inhibitors, accidental (unintentional), initial encounter (principal); K72.00 Acute and subacute hepatic failure without coma; N17.0 Acute kidney failure with tubular necrosis; R65.21 Severe sepsis with septic shock; J96.01 Acute respiratory failure with hypoxia; J69.0 Pneumonitis due to inhalation of food and vomit; A41.9 Sepsis, unspecified organism; G92.8 Other toxic encephalopathy; D68.9 Coagulation defect, unspecified; E83.39 Other disorders of phosphorus metabolism; D64.9 Anemia, unspecified; E87.5 Hyperkalemia; F32.9 Major depressive disorder, single episode, unspecified; F41.9 Anxiety disorder, unspecified; M62.82 Rhabdomyolysis; G40.909 Epilepsy, unspecified, not intractable, without status epilepticus; Z20.822 Contact with and (suspected) exposure to COVID-19; F19.10 Other psychoactive substance abuse, uncomplicated; Z86.16 Personal history of COVID-19; W34.00XA Accidental discharge from unspecified firearms or gun, initial encounter; Z82.49 Family history of ischemic heart disease and other diseases of the circulatory system
CPT/HCPCS: 31500; 36415; 36573; 36600; 71045; 71250; 74176; 80048; 80053; 80076; 80202; 80307; 80320; 80329; 82375; 82550; 82805; 83605; 83735; 83880; 84100; 84145; 84478; 85025; 87426; 87804; 93005; 93970; 94002; 94003; 94640; 99291; C1725; J0330; J0610; J0692; J1815; J1953; J2060; J2250; J2310; J2370; J2405; J2470; J2704; J2919; J2920; J3010; J3370; J3475; J3490; J7030; J7050; J7060; J7070; J7120; J7608; G0480

== ENCOUNTER 2024-03-31 17:17 | Emergency (ER) | payer MEDICAID ==
[~2024-03-31] VITALS: Ht 182.9 cm; Wt 65.0 kg
[2024-03-31 17:20] VITALS: O2SAT 98
[2024-03-31 17:30] VITALS: TEMP 98.7
[2024-03-31 18:36] LABS: BASOPHILS % 1.3 % (0.0-2.0); EOSINOPHILS % 1.1 % (0.0-5.0); HEMOGLOBIN. 11.9 g/dL (14.0-18.0); LYMPHOCYTES % 26.5 % (20.0-50.0); MEAN CORPUSCULAR HEMOGLOBIN 29.3 pg (28.0-32.0); MEAN CORPUSCULAR HGB CONC 32.2 g/dL (31.0-37.0); MEAN CORPUSCULAR VOLUME 91.1 fL (80.0-94.0); MONOCYTES % 7.5 % (2.0-8.0); NEUTROPHILS % 63.6 % (40.0-76.0); PLATELET 391 x1000/uL (130-400); RED BLOOD CELL COUNT 4.06 mill/uL (4.7-6.1); RED CELL DISTRIBUTION WIDTH 22.5 % (11.6-14.6); WHITE BLOOD COUNT 7.9 x1000/uL (4.5-11.0)
[2024-03-31 18:38] LABS: ADD RBC MORPHOLOGY YES; DIFFERENTIAL COMMENT 1
[2024-03-31 18:48] LABS: CARBON DIOXIDE 23 mEq/L (21-32); CHLORIDE 107 mEq/L (98-107); POTASSIUM 4.3 mEq/L (3.5-5.1); SODIUM 140 mEq/L (136-145)
[2024-03-31 18:49] LABS: CALCIUM 9.6 mg/dL (8.7-10.4)
[2024-03-31 18:51] LABS: INR 1.3; PROTHROMBIN TIME 14.6 sec (9.6-11.0)
[2024-03-31] MEDS: MORPHINE SULFATE 4 MG/ML INJ (FOR IV/IM USE) IV ONE ×2 (18:52→21:02)
[2024-03-31] MEDS: ONDANSETRON HCL 4MG/2ML INJ IV ONE (18:52)
[2024-03-31 18:53] LABS: CREATININE 0.7 mg/dL (0.6-1.3)
[2024-03-31] MEDS: LACTATED RINGERS 1,000 ML IV SCH (18:53)
[2024-03-31 18:54] LABS: GLUCOSE 84 mg/dL (70-105); UREA NITROGEN BLOOD 15 mg/dL (9-23)
[2024-03-31 18:55] LABS: ALANINE AMINOTRANSFERASE 258 IU/L (10-49); ALBUMIN 4.3 g/dL (3.2-4.8); TROPONIN I HIGH SENSITIVITY < 4 ng/L (3.0-53)
[2024-03-31 18:56] LABS: ASPARTATE AMINOTRANSFERASE 151 IU/L (<34); BILIRUBIN DIRECT 0.3 mg/dL (<=3.0); BILIRUBIN TOTAL 0.7 mg/dL (0.1-1.0); PROTEIN TOTAL 7.9 g/dL (6.0-8.3)
[2024-03-31] MEDS: DIPHENHYDRAMINE 50MG/ML VIAL IV ONE (19:26)
[2024-03-31 19:30] LABS: ANISOCYTOSIS 2+; PLATELET ESTIMATE NORMAL
[2024-03-31] MEDS ORDERED: KETOROLAC 15MG/ML VIAL IV ONE (20:30)
[2024-03-31 21:30] VITALS: BP 117/71; PULSE 84; RESP 18
[2024-03-31] MEDS ORDERED: IOHEXOL-300 100 ML BOTTLE ONE (23:53)
[2024-03-31] MEDS ORDERED: IOHEXOL-350 100 ML BOTTLE ONE (23:53)
== END 2024-03-31 23:00 | disposition short-term general hospital (02) ==
LOC: ER 17:17
DX: R10.31 Right lower quadrant pain (principal); R10.32 Left lower quadrant pain; R51.9 Headache, unspecified; R11.2 Nausea with vomiting, unspecified; R07.89 Other chest pain; R79.89 Other specified abnormal findings of blood chemistry; F41.9 Anxiety disorder, unspecified; F32.9 Major depressive disorder, single episode, unspecified; R56.9 Unspecified convulsions; Z88.0 Allergy status to penicillin
CPT/HCPCS: 80076; 80048; 83690; 85025; 85610; 84484; 36415; 74174; 71045; 71275; 70450; 93005; 96361; 96374; 96375; 96376; 99291; Q9967 ×2; J1200; J2405; J2270; Z7610

== ENCOUNTER 2024-04-27 04:34 | Emergency (ER) | payer MEDICAID ==
[~2024-04-27] VITALS: Ht 180.3 cm; Wt 63.0 kg
[2024-04-27 04:39] VITALS: O2SAT 98
[2024-04-27 05:38] LABS: CHLORIDE 112 mEq/L (98-107); POTASSIUM 3.9 mEq/L (3.5-5.1); SODIUM 141 mEq/L (136-145)
[2024-04-27 05:40] LABS: CALCIUM 9.7 mg/dL (8.7-10.4); CARBON DIOXIDE 22 mEq/L (21-32)
[2024-04-27 05:45] LABS: CREATININE 0.6 mg/dL (0.6-1.3); GLUCOSE 99 mg/dL (70-105); UREA NITROGEN BLOOD 13 mg/dL (9-23)
[2024-04-27 05:47] LABS: ACETAMINOPHEN < 2 ug/mL (10-30); ALANINE AMINOTRANSFERASE 298 IU/L (10-49); ALBUMIN 4.4 g/dL (3.2-4.8); ASPARTATE AMINOTRANSFERASE 173 IU/L (<34); BILIRUBIN DIRECT 0.2 mg/dL (<=3.0); BILIRUBIN TOTAL 0.6 mg/dL (0.1-1.0); PROTEIN TOTAL 7.1 g/dL (6.0-8.3)
[2024-04-27 05:48] LABS: BASOPHILS % 0.6 % (0.0-2.0); EOSINOPHILS % 2.1 % (0.0-5.0); ETHANOL BLOOD < 10 mg/dL (<10); LYMPHOCYTES % 31.2 % (20.0-50.0); MEAN CORPUSCULAR HEMOGLOBIN 30.2 pg (28.0-32.0); MEAN CORPUSCULAR HGB CONC 33.3 g/dL (31.0-37.0); MEAN CORPUSCULAR VOLUME 90.7 fL (80.0-94.0); MEAN PLATELET VOLUME 10.3 fl (7.4-10.4); NEUTROPHILS % 59.1 % (40.0-76.0); PLATELET 270 x1000/uL (130-400); RED BLOOD CELL COUNT 3.64 mill/uL (4.7-6.1); RED CELL DISTRIBUTION WIDTH 19.5 % (11.6-14.6); WHITE BLOOD COUNT 8.2 x1000/uL (4.5-11.0)
[2024-04-27 06:10] LABS: BG BASE EXCESS -0.2 mmol/L (-2.0-2.0); BG CARBOXYHEMOGLOBIN 0.4 % (0.5-1.5); BG DEOXYHEMOGLOBIN 2.4 % (0.0-5.0); BG FRACTION INSPIRED OXYGEN 21; BG METHEMOGLOBIN 0.3 % (0.0-1.5); BG OXYGEN SATURATION 97.6 % (92.0-98.5); BG OXYHEMOGLOBIN 96.9 % (94.0-97.0); BG PCO2 37.8 mmHg (35.0-45.0); BG PH 7.421 (7.350-7.450); BG PO2 98.1 mmHg (75.0-100.0); BG SAMPLE SITE LEFT RADIAL; BG TOTAL HEMOGLOBIN 12.1 g/dL (12.0-18.0); BG VENT MODE ROOM AIR
[2024-04-27 06:22] LABS: TROPONIN I HIGH SENSITIVITY < 4 ng/L (3.0-53)
[2024-04-27] MEDS ORDERED: ACETAMINOPHEN 325MG TABLET PO PRN ×2 (10:00→10:15)
[2024-04-27] MEDS ORDERED: DOCUSATE SODIUM 100MG CAPSULE PO PRN (10:15)
[2024-04-27] MEDS ORDERED: HYDROMORPHONE HCL/PF 2MG/ML INJ IM PRN (10:15)
[2024-04-27] MEDS ORDERED: CLONIDINE 0.1MG TABLET PO PRN (10:15)
[2024-04-27] MEDS ORDERED: ONDANSETRON HCL 4MG/2ML INJ IV PRN (10:15)
[2024-04-27] MEDS ORDERED: GUAIFENESIN 200MG/10ML SUGAR FREE UDC PO PRN (10:15)
[2024-04-27] MEDS ORDERED: IPRATROPIUM/ALBUTEROL 0.5-3(2.5)MG/3ML NEB HHN PRN (10:15)
[2024-04-27] MEDS ORDERED: MAGNESIUM/ALUMINUM HYDROXIDE/SIMETHICONE 30ML UDC PO PRN (10:15)
[2024-04-27] MEDS ORDERED: ACETAMINOPHEN 650MG/20.3ML UDC GT PRN (10:15)
[2024-04-27] MEDS ORDERED: LORA-250 (11:11)
[2024-04-27] MEDS ORDERED: LEVE500T98 PO (11:11)
[2024-04-27] MEDS ORDERED: QUET25TA36 PO (11:11)
[2024-04-27] MEDS ORDERED: RIVA20TA PO (11:11)
[2024-04-27 11:27] LABS: PHOSPHORUS 5.1 mg/dL (2.5-4.9)
[2024-04-27] MEDS ORDERED: NALOXONE HCL 0.4MG/ML VIAL IV PRN (11:30)
[2024-04-27] MEDS ORDERED: LORAZEPAM 2MG/ML INJ IV PRN (11:30)
[2024-04-27] MEDS: LEVETIRACETAM 500MG TABLET PO SCH (12:05)
[2024-04-27] MEDS: QUETIAPINE FUMARATE 25MG TABLET PO SCH (12:06)
[2024-04-27 12:43] VITALS: BP 106/59; PULSE 85; RESP 27; TEMP 36.89184; O2SAT 98
[2024-04-27] MEDS ORDERED: RIVAROXABAN 20 MG TABLET PO SCH (17:00)
== END 2024-04-27 12:47 | disposition short-term general hospital (02) ==
LOC: ER 04:34 → EDBEDREQTM 09:24 → EDBEDREQ 09:24 → CANBEDREQ 11:37 → ER 12:47
DX: R55 Syncope and collapse (principal); F41.9 Anxiety disorder, unspecified; F32.A Depression, unspecified; Z88.0 Allergy status to penicillin; Z88.1 Allergy status to other antibiotic agents; Z86.59 Personal history of other mental and behavioral disorders; Z98.890 Other specified postprocedural states
CPT/HCPCS: 36415; 36600; 71045; 76705; 80048; 80076; 80307; 80320; 80329; 82375; 82805; 83735; 84100; 84484; 85025; 93005; 99291; G0480